=== PATIENT | female | born 1970 | race Hispanic/Latino ===

== ENCOUNTER 2024-03-15 14:48 | Outpatient (CLI) | payer SELFPAY ==
--- NOTE | ~2024-03-15 | US_ITS ---
US soft tissue abdomen 03/15/2024 15:04 Indication: History of umbilical hernia Procedure: High-resolution Limited ultrasound of the umbilicus Comparison: No prior studies for comparison. Findings: Normal heterogeneous soft tissue. No hernia is identified. No focal fluid collections or ma sses. Impression: 1: Normal limited soft tissue ultrasound of the umbilicus. No evidence for hernia. Reviewed, dictated and finalized at location B. Impression: 1: Normal limited soft tissue ultrasound of the umbilicus. No evidence for deondre ia.
== END 2024-03-15 14:49 ==
PROVIDERS: PCP Midwife; Visit Provider Midwife
DX: Z98.890 Other specified postprocedural states (principal)
CPT/HCPCS: 76705

== ENCOUNTER 2024-04-15 11:22 | Outpatient (CLI) | payer SELFPAY ==
--- NOTE | ~2024-04-15 | CT_ITS ---
EXAMINATION: CT abdomen pelvis wo con DATE: 04/15/2024 11:42 INDICATION: Mass of stomach. TECHNIQUE: Computed tomography (CT) of the abdomen and pelvis was performed without intravenous contr ast. Automated exposure control and iterative reconstruction technique were employed. The dose-length product was 715.76 mGy-cm. COMPARISON: CT abdomen and pelvis 04/12/2015 FINDINGS: The lungs demonstrate mild atelectasis. No pleural effusion. The heart size is normal. No p ericardial effusion. There is a large sliding hiatal hernia. The liver, gallbladder, spleen, pancreas , adrenal glands, and kidneys are normal. There are no dilated loops of bowel. The appendix is normal . There are no pathologically enlarged lymph nodes. There is no free intraperitoneal fluid. There is mild thoracic and lumbar spondylosis. IMPRESSION: 1. Large sliding hiatal hernia. No abnormal mass identified. Reviewed, dictated and finalized at location A.
== END 2024-04-15 11:23 ==
PROVIDERS: PCP Midwife; Visit Provider Midwife
DX: R19.09 Other intra-abdominal and pelvic swelling, mass and lump (principal); K44.9 Diaphragmatic hernia without obstruction or gangrene
CPT/HCPCS: 74176